=== PATIENT | female | born 1975 ===

== ENCOUNTER 2022-12-02 08:33 | Inpatient (IN) | payer OTHER ==
[~2022-12-02] VITALS: Ht 162.6 cm; Wt 66.2 kg
[2022-12-03] MEDS ORDERED: IRON PO (09:50)
[2022-12-03] MEDS ORDERED: MULTIVITAMINS1 EAC4 PO (09:50)
[2022-12-10] MEDS ORDERED: FOLIC ACID1 MG (08:08)
[2022-12-10] MEDS ORDERED: FERROUS SULFAT325 M2 (08:08)
[2022-12-10] MEDS ORDERED: CYANOCOBAL1000 MCG/1 (08:08)
[2022-12-11] MEDS ORDERED: KETO10TA2 PO (08:32)
[2022-12-11] MEDS ORDERED: PEPCID AC20 MG PO (08:33)
[2022-12-11] MEDS ORDERED: ACETAMINOPHEN-1 EAC2 PO (08:33)
== END 2022-12-11 11:37 | disposition home or self-care (01) | DRG 743 ==
LOC: O/R 12-10 05:50 → OB/GYN 12-10 05:50
PROVIDERS: ADMIT Obstetrics & Gynecology; ATTEND Obstetrics & Gynecology
PROC: 0UT7FZZ Resection of Bilateral Fallopian Tubes, Via Natural or Artificial Opening With Percutaneous Endoscopic Assistance (ICD-10-PCS; 2022-12-10)
PROC: 0TJB8ZZ Inspection of Bladder, Via Natural or Artificial Opening Endoscopic (ICD-10-PCS; 2022-12-10)
PROC: 0UT9FZZ Resection of Uterus, Via Natural or Artificial Opening With Percutaneous Endoscopic Assistance (ICD-10-PCS; principal; 2022-12-10 18:30)
DX: D25.1 Intramural leiomyoma of uterus (principal); D25.2 Subserosal leiomyoma of uterus; Z20.822 Contact with and (suspected) exposure to COVID-19; N72 Inflammatory disease of cervix uteri